=== PATIENT | male | born 1995 | race Caucasian/White ===

== ENCOUNTER 2017-01-04 19:25 | Emergency (ER) | payer SELFPAY ==
[~2017-01-04] VITALS: Ht 185.4 cm; Wt 65.6 kg
[2017-01-04 19:56] LABS: HEMOGLOBIN 14.7 g/dL (13.7-18.0)
[2017-01-04 20:08] LABS: ASPARTATE AMINO TRANSFERASE 14 U/L (15-37); BLOOD UREA NITROGEN 7 mg/dL (7-18)
[2017-01-04] MEDS ORDERED: ONDANSETRON 2MG/ML, 2ML IVPush ONE (20:30)
[2017-01-04] MEDS ORDERED: SODIUM CHLORIDE FLUSH 10ML SYR IVF ONE (20:30)
[2017-01-04] MEDS ORDERED: SODIUM CHLORIDE 0.9% 1,000ML IVBOLUS ONE (20:30)
[2017-01-04] MEDS ORDERED: MORPHINE SULFATE 4 MG/ML, 1ML IVPush PRN (20:30)
[2017-01-04] MEDS ORDERED: ONDANSETRON 2MG/ML, 2ML ONE (20:42)
[2017-01-04] MEDS ORDERED: MORPHINE SULFATE 4 MG/ML, 1ML ONE (20:42)
[2017-01-04 20:47] LABS: PATH.CAST-FLAG NOT PRESENT; SPERM-FLAG NOT PRESENT; SRC-FLAG NOT PRESENT; XTAL-FLAG NOT PRESENT; YLC-FLAG NOT PRESENT
[2017-01-04] MEDS ORDERED: MAALOX/HYOSCYAMINE/LIDOCAINE 45 ML BOTTLE PO ONE (21:00)
[2017-01-04 22:31] VITALS: BP 101/63
== END 2017-01-04 22:38 | disposition home or self-care (01) ==
LOC: ED 22:29
DX: R10.13 Epigastric pain (principal); R11.2 Nausea with vomiting, unspecified; R19.7 Diarrhea, unspecified
CPT/HCPCS: 36415; 74176; 80053; 81001; 83690; 85025; 96361; 96374; 96375; 99285; J2405; J7030

== ENCOUNTER 2017-03-12 11:48 | Emergency (ER) | payer MEDICAID ==
[~2017-03-12] VITALS: Ht 185.4 cm; Wt 70.6 kg
[2017-03-12 11:55] VITALS: BP 116/78
[2017-03-12] MEDS ORDERED: LIDOCAINE 1%, 20ML ONE (12:22)
[2017-03-12] MEDS ORDERED: LIDOCAINE 1%, 20ML SQ ONE (12:30)
== END 2017-03-12 12:44 | disposition home or self-care (01) ==
LOC: ED 12:23
DX: L02.01 Cutaneous abscess of face (principal)
CPT/HCPCS: 10060

== ENCOUNTER 2019-10-10 09:30 | Emergency (ER) | payer BC ==
[~2019-10-10] VITALS: Ht 185.4 cm; Wt 72.5 kg
--- NOTE | 2019-10-10 09:58 | NUR ---
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
--- NOTE | 2019-10-10 10:05 | NUR ---
PT CAME IN CO OF VOMITTING AND DIARRHEA SINCE 2299 LAST NIGHT (10/09). PT ALSO CO OF ABD TENDERNESS IN ALL QUADRANTS AND BURNING SENSATION DURING URINATION. PT IS ACCOMPANIED BY . BLANKET PROVIDED. CALL LIGHT WITHIN REACH
[2019-10-10] MEDS ORDERED: ONDANSETRON 2MG/ML, 2ML ONE (10:25)
[2019-10-10] MEDS ORDERED: FAMOTIDINE 20 MG/2 ML ONE (10:26)
[2019-10-10] MEDS ORDERED: SODIUM CHLORIDE 0.9% 1,000ML IVBOLUS ONE (10:30)
[2019-10-10] MEDS ORDERED: SODIUM CHLORIDE FLUSH 10ML SYR IVF ONE (10:30)
[2019-10-10] MEDS ORDERED: ONDANSETRON 2MG/ML, 2ML IVPush ONE (10:30)
[2019-10-10] MEDS ORDERED: FAMOTIDINE 20 MG/2 ML IV ONE (10:30)
[2019-10-10 10:55] LABS: BASOPHILS # (AUTO) 0.02 x10^3/uL (0-0.1); BASOPHILS % (AUTO) 0 % (0-1); EOSINOPHILS # (AUTO) 0.05 x10^3/uL (0-0.4); EOSINOPHILS % (AUTO) 1 % (1-7); LYMPHOCYTES # (AUTO) 1.92 x10^3/uL (1-3.4); LYMPHOCYTES % (AUTO) 32 % (22-44); MD NO; MEAN CORPUSCULAR HEMOGLOBIN 28.7 pg (27.5-34.5); MEAN CORPUSCULAR HGB CONC 33.3 g/dL (33.2-36.2); MEAN CORPUSCULAR VOLUME 86.2 fL (81-97); MEAN PLATELET VOLUME 9.1 fL (7.4-10.4); MONOCYTES % (AUTO) 10 % (2-9); NEUTROPHILS # (AUTO) 3.37 x10^3/uL (1.8-6.8); NEUTROPHILS % (AUTO) 57 % (42-75); PLATELET COUNT 229 x10^3/uL (130-400); RED CELL DISTRIBUTION WIDTH 13.9 % (9.4-14.8)
[2019-10-10 11:00] LABS: ALBUMIN 3.9 g/dL (3.4-5.0); ANION GAP 3 mmol/L (5-15); CHLORIDE 110 mmol/L (98-107)
[2019-10-10 11:05] LABS: ALANINE AMINOTRANSFERASE 21 U/L (12-78); ALKALINE PHOSPHATASE 98 U/L (45-117); BILIRUBIN,TOTAL 0.5 mg/dL (0.2-1.0); CREATININE 1.09 mg/dL (0.7-1.3); TOTAL PROTEIN 7.9 g/dL (6.4-8.2)
--- NOTE | 2019-10-10 11:16 | NUR ---
GAVE PT A GLASS OF WATER FOR PO CHALLENGE. EMESIS BAG PROVIDED.
[2019-10-10 11:31] VITALS: BP 96/61
== END 2019-10-10 12:39 | disposition home or self-care (01) ==
LOC: ED 11:53
DX: R11.2 Nausea with vomiting, unspecified (principal); R19.7 Diarrhea, unspecified; M79.10 Myalgia, unspecified site
CPT/HCPCS: 36415; 80053; 85025; 96361; 96374; 96375; 99283; J2405; J3490; J7030

== ENCOUNTER 2021-06-27 19:44 | Emergency (ER) | payer SELFPAY ==
--- NOTE | 2021-06-27 20:10 | NUR ---
NAX1
--- NOTE | 2021-06-27 20:15 | NUR ---
NAX2
--- NOTE | 2021-06-27 20:32 | NUR ---
NAX3
== END 2021-06-27 23:45 | disposition left against medical advice (07) ==
LOC: ED 20:32
DX: R10.9 Unspecified abdominal pain (principal); Z53.21 Procedure and treatment not carried out due to patient leaving prior to being seen by health care provider